=== PATIENT | female | born 1960 | race Caucasian/White ===

== ENCOUNTER 2021-04-08 20:03 | Emergency (ER) | payer MEDICAID ==
[~2021-04-08] VITALS: Ht 175.3 cm; Wt 77.1 kg
[2021-04-08] MEDS ORDERED: IBRANCE75 MG PO (20:10)
[2021-04-08] MEDS ORDERED: AMBIEN 10 MG TA10 MG PO (20:10)
[2021-04-08] MEDS ORDERED: NEURONTIN 300M300 M2 PO (20:10)
[2021-04-08] MEDS ORDERED: ARIMIDEX1 MG PO (20:11)
[2021-04-08 20:28] LABS: URINE BILIRUBIN NEGATIVE (Negative); URINE BLOOD TRACE (Negative); URINE CLARITY CLEAR; URINE COLOR YELLOW; URINE GLUCOSE-RANDOM NEGATIVE (Negative); URINE KETONES 1+ (Negative); URINE LEUKOCYTES-REFLEX 1+ (Negative); URINE NITRITE-REFLEX NEGATIVE (Negative); URINE PROTEIN NEGATIVE (Negative)
[2021-04-08 20:42] LABS: BACTERIA-REFLEX 1-9 Few /HPF (None Seen); MUCUS None Seen strn/LPF (None Seen); SQUAMOUS 4-10 Moderate /LPF (0-3)
[2021-04-08 20:43] LABS: URINE RBC 0-2 Rare /HPF (0-2); URINE WBC-REFLEX 6-15 Few /HPF (0-5)
[2021-04-08 20:44] LABS: CRYSTALS None Seen /LPF (None Seen); HYALINE CASTS 0-3 Few /LPF (None Seen)
[2021-04-08 20:56] LABS: AMP/METHAMP Negative (Negative); BARBITURATES Negative (Negative); BENZODIAZEPINES Negative (Negative); COCAINE Negative (Negative); METHADONE Negative (Negative); OPIATES Negative (Negative); PCP Negative (Negative); THC Negative (Negative)
[2021-04-08] MEDS ORDERED: PERCOCET 7.5-31 EAC1 PO (22:29)
[2021-04-08 22:47] VITALS: BP 154/98
== END 2021-04-08 22:49 | disposition home or self-care (01) ==
LOC: M.ERS 20:03
PROVIDERS: Emergency Medicine
DX: C79.81 Secondary malignant neoplasm of breast (principal); M25.532 Pain in left wrist; Z20.822 Contact with and (suspected) exposure to COVID-19; Z79.899 Other long term (current) drug therapy